=== PATIENT | female | born 1985 ===

== ENCOUNTER 2017-01-11 19:08 | Emergency (ER) | payer MEDICAID, OTHER ==
[2017-01-11 19:09] VITALS: BMI 36.6
[2017-01-11 19:17] VITALS: BP 137/79; PULSE 85; RESP 16; TEMP 98.2; O2SAT 99
--- NOTE | 2017-01-11 19:26 | ED PDOC ---
HPI: Female Pain Time Seen by Provider: 01/11/17 19:18 Chief Complaint (Nursing): Female Genitourinary History Per: Patient (Vaginal bleeding assoc with lower abd cramping. Seen by PMD 01/05 with repeat Beta HCG 01/09 [place] [id number] [place] [id number]) Onset/Duration Of Symptoms: Days (5) Current Symptoms Are (Timing): Still Present Severity: Mild Pain Scale Rating Of: 2 Quality Of Discomfort: Cramping Abnormal Vaginal Bleeding: Yes Past Medical History Vital Signs: Last Vital Signs Temp 98.2 F 01/11/17 19:12 Pulse 85 01/11/17 19:12 Resp 16 01/11/17 19:12 BP 137/79 01/11/17 19:12 Pulse Ox 99 01/11/17 19:12 - Medical History PMH: Hypothyroidism Denies: Chronic Kidney Disease - Family History Family History: States: Unknown Family Hx - Home Medications Home Medications: Ambulatory Orders Medication Instructions Recorded Levothyroxine [Synthroid] 0.05 mg PO DAILY 03/12/14 Ethinyl Estradiol/Norgestima 1 tab PO DAILY 03/13/14 [Ortho Tri-Cyclen 35 Mcg-0.215 mg] Pantoprazole Sodium [Protonix] 40 mg PO PRN PRN 03/13/14 - Allergies Allergies/Adverse Reactions: Allergies Allergy/AdvReac Type Severity Reaction Status Date / Time No Known Allergies Allergy Verified 01/11/17 19:12 Review of Systems Gastrointestinal: Positive for: Abdominal Pain Genitourinary Female: Positive for: Vaginal Bleeding Musculoskeletal: Negative for: Back Pain Physical Exam - Physical Exam Appears: Positive for: Non-toxic, No Acute Distress Gastrointestinal/Abdominal: Positive for: Soft. Negative for: Tenderness Pelvic Exam: Positive for: External Exam Normal, Blood (blood with clots in vault). Negative for: Mass, Tender Adnexa - Laboratory Results Result Diagrams: 01/11/17 19:45 - ECG O2 Sat by Pulse Oximetry: 99 Disposition - Clinical Impression Clinical Impression: Threatened - Patient ED Disposition Is Patient to be Admitted: No Counseled Patient/Family Regarding: Studies Performed, Diagnosis, Need For Followup - Disposition Referrals: Federico Murray MD [Staff Provider] - Disposition: Routine/Home Disposition Time: 21:28 Condition: FAIR Instructions: Threatened Miscarriage (ED)
[2017-01-11 19:50] LABS: BASO # 0.1 K/uL (0.0-0.2); BASO % 0.9 % (0.0-2.0); EOS # 0.1 K/uL (0.0-0.7); EOS % 1.1 % (0.0-4.0); HEMOGLOBIN 13.1 g/dL (12.0-16.0); LYMPH # 1.6 K/uL (1.0-4.3); LYMPH % 16.6 % (20.0-40.0); MEAN CELL VOLUME 87.1 fl (81.0-99.0); MEAN CORPUSCULAR HGB CONC 33.3 g/dL (33.0-37.0); MEAN PLATELET VOLUME 9.3 fl (7.2-11.7); MONO # 0.6 K/uL (0.0-0.8); MONO % 6.1 % (0.0-10.0); NEUT # 7.1 K/uL (1.8-7.0); NEUT % 75.3 % (50.0-75.0); RBC 4.52 Mil/uL (3.80-5.20); RED CELL DISTRIBUTION WIDTH 13.5 % (11.5-14.5); WHITE BLOOD COUNT 9.5 K/uL (4.8-10.8)
== END 2017-01-11 21:47 | disposition home or self-care (01) ==
LOC: H.ER 19:08
DX: O20.0 Threatened abortion (principal); E03.9 Hypothyroidism, unspecified

== ENCOUNTER 2017-01-12 19:35 | Observation (INO) | payer OTHER ==
[2017-01-12 19:35] VITALS: BMI 36.6
[2017-01-12] MEDS ORDERED: Sodium Chloride 0.9% 1,000 ML IV STA (20:14)
--- NOTE | 2017-01-12 20:32 | ED PDOC ---
HPI: Female Pain Time Seen by Provider: 01/12/17 20:04 Chief Complaint (Nursing): Female Genitourinary Chief Complaint (Provider): : heavy vaginal bleeding History Per: Patient History/Exam Limitations: no limitations Onset/Duration Of Symptoms: Days (3) Current Symptoms Are (Timing): Still Present Quality Of Discomfort: Cramping Additional History Per: Patient Additional Complaint(s): 31 y/o female, approx 9 weeks gestation, presents for eval ofvaginal bleeding x 3 days, worse today. Patient was seen in ED yesterday for same, but presents tonight due to heavy bleeding with clots that began 2 hours prior to arrival. Denies fever, nausea/vomiting, chest pain, shortness of breath, palpitations, dysuria, hematuria. Abnormal Vaginal Bleeding: Yes Last Menstral Period: 11/06/16 : 1 Para: 0 Miscarriage: 0 Past Medical History Reviewed: Historical Data, Nursing Documentation, Vital Signs Vital Signs: Last Vital Signs Temp 98.3 F 01/12/17 19:53 Pulse 114 H 01/12/17 19:53 Resp 16 01/12/17 19:53 BP Pulse Ox 98 01/12/17 19:53 - Medical History PMH: Hypothyroidism Denies: Chronic Kidney Disease - Surgical History Surgical History: Cholecystectomy - Family History Family History: States: Unknown Family Hx - Home Medications Home Medications: Ambulatory Orders Medication Instructions Recorded No Known Home Med 01/12/17 - Allergies Allergies/Adverse Reactions: Allergies Allergy/AdvReac Type Severity Reaction Status Date / Time No Known Allergies Allergy Verified 01/12/17 23:13 Review of Systems ROS Statement: Except As Marked, All Systems Reviewed And Found Negative Genitourinary Female: Positive for: Vaginal Bleeding, Pelvic Pain Physical Exam - Reviewed Nursing Documentation Reviewed: Yes Vital Signs Reviewed: Yes - Physical Exam Appears: Positive for: Well, Non-toxic, No Acute Distress Head Exam: Positive for: ATRAUMATIC, NORMAL INSPECTION, NORMOCEPHALIC Skin: Positive for: Normal Color Eye Exam: Positive for: Normal appearance ENT: Positive for: Normal ENT Inspection Cardiovascular/Chest: Positive for: Regular Rate, Rhythm Respiratory: Positive for: Normal Breath Sounds Gastrointestinal/Abdominal: Positive for: Bowel Sounds, Soft, Tenderness ( diffuse lower discomfort) Pelvic Exam: Positive for: External Exam Normal, Active Bleeding (visualization of cervix limited due to large amount of bleeding with clots), Other (exam chaperoned by Kathia HOLLEY) Back: Positive for: Normal Inspection Extremity: Positive for: Normal ROM Neurologic/Psych: Positive for: Alert, Oriented - Laboratory Results Result Diagrams: 01/12/17 21:16 01/12/17 21:16 - ECG O2 Sat by Pulse Oximetry: 98 - Progress ED Course And Treament: labs, urine, OB u/s EXAM: US Uterus CLINICAL HISTORY: 31 years old, female; Signs and symptoms; Lmp or gestational age (in weeks): 09/23; Antepartum complications; Hemorrhage; Additional info: , vaginal bleeding TECHNIQUE: Real-time ultrasound of the maternal uterus (limited) with image documentation. COMPARISON: No relevant prior studies available. FINDINGS: Uterus: No intrauterine gestational sac is seen. No mass is identified. Thickened endometrium, measured at 1.5 cm. Adnexa: Doppler evaluation reveals vascular flow in both ovaries. 1.9 cm right ovarian cyst. Free fluid: None. IMPRESSION: No intrauterine is identified. Thickened endometrium. Right ovarian cyst. Differential diagnosis includes spontaneous , very early intrauterine , and ectopic . Correlate clinically. Case discussed with jay jay [employer]; will place in observation med/surg for possible D&C in am. Recommends sending products for cytology and doing repeat 4 hour CBC. Disposition - Clinical Impression Clinical Impression: Spontaneous miscarriage - Disposition Disposition Time: 23:03 Condition: FAIR - Pt Status Changed To: Hospital Disposition Of: Observation
[2017-01-12 21:31] LABS: BASO % 0.3 % (0.0-2.0); EOS # 0.1 K/uL (0.0-0.7); EOS % 0.6 % (0.0-4.0); HEMATOCRIT 38.4 % (34.0-47.0); LYMPH # 1.4 K/uL (1.0-4.3); LYMPH % 10.3 % (20.0-40.0); MEAN CELL VOLUME 87.1 fl (81.0-99.0); MEAN CORPUSCULAR HGB CONC 33.2 g/dL (33.0-37.0); MEAN PLATELET VOLUME 9.5 fl (7.2-11.7); MONO # 0.7 K/uL (0.0-0.8); MONO % 4.9 % (0.0-10.0); NEUT # 11.7 K/uL (1.8-7.0); NEUT % 83.9 % (50.0-75.0); NRBC % 0.1 % (0.0-0.0); RED CELL DISTRIBUTION WIDTH 13.1 % (11.5-14.5); WHITE BLOOD COUNT 13.9 K/uL (4.8-10.8)
--- NOTE | 2017-01-12 21:53 | US ---
EXAM: US Uterus CLINICAL HISTORY: 31 years old, female; Signs and symptoms; Lmp or gestational age (in weeks): 11/06/16; Antepartum complications; Hemorrhage; Additional info: , vaginal bleeding TECHNIQUE: Real-time ultrasound of the maternal uterus (limited) with image documentation. COMPARISON: No relevant prior studies available. FINDINGS: Uterus: No intrauterine gestational sac is seen. No mass is identified. Thickened endometrium, measured at 1.5 cm. Adnexa: Doppler evaluation reveals vascular flow in both ovaries. 1.9 cm right ovarian cyst. Free fluid: None. IMPRESSION: No intrauterine is identified. Thickened endometrium. Right ovarian cyst. Differential diagnosis includes spontaneous , very early intrauterine , and ectopic . Correlate clinically.
[2017-01-12 22:01] LABS: ALB/GLOB RATIO 1.2 (1.0-2.1); ALKALINE PHOSPHATASE 60 U/L (38-126); ALT/SGPT 37 U/L (9-52); AST/SGOT 40 U/L (14-36); BILIRUBIN,TOTAL 0.4 mg/dl (0.2-1.3); BLOOD UREA NITROGEN 11 mg/dl (7-17); CALCIUM 9.4 mg/dL (8.4-10.2); CARBON DIOXIDE 23 mmol/L (22-30); CHLORIDE 104 mmol/L (98-107); GFR AFRICAN-AMERICAN > 60; GLUCOSE,RANDOM 104 mg/dL (65-105); SODIUM 138 mmol/l (132-148)
[2017-01-12 22:15] LABS: POTASSIUM 4.3 MMOL/L (3.6-5.0)
[2017-01-13] MEDS ORDERED: Lactated Ringer's 1,000 ML IV SCH (01:00)
[2017-01-13 01:36] LABS: HEMATOCRIT 32.5 % (34.0-47.0); MEAN CELL VOLUME 86.2 fl (81.0-99.0); MEAN CORPUSCULAR HEMOGLOBIN 28.9 pg (27.0-31.0); MEAN CORPUSCULAR HGB CONC 33.5 g/dL (33.0-37.0); WHITE BLOOD COUNT 13.1 K/uL (4.8-10.8)
[2017-01-13] MEDS ORDERED: Chlorhexidine Gluconate 2OZ GEL TP ONE (10:22)
[2017-01-13] MEDS ORDERED: Propofol 10 mg/ml Inj (20 ML) ONE (10:47)
[2017-01-13] MEDS ORDERED: Midazolam 2 MG/2 ML VIAL ONE (10:47)
[2017-01-13] MEDS ORDERED: Oxytocin 10 Units/ml Inj IM ONE (11:36)
[2017-01-13] MEDS ORDERED: Lactated Ringer's 1,000 ML IV ONE (11:37)
[2017-01-13 13:27] VITALS: O2SAT 99
[2017-01-13 15:52] VITALS: BP 104/71; PULSE 74; RESP 18; TEMP 97.9
--- NOTE | 2017-01-14 15:51 | OP ---
PROCEDURE DATE: 01/13/2017 PREOPERATIVE DIAGNOSES: Incomplete . POSTOPERATIVE DIAGNOSIS: Incomplete . SURGEON: Federico Murray MD ANESTHESIA: Dr. Suggs, general anesthesia. PROCEDURE: Dilatation and curettage. DESCRIPTION OF PROCEDURE: First the straight catheter was used to empty the bladder. After this was done, the anterior lip of the cervix was grasped with single tooth tenaculum and about 2 cm dilated. Curettage was done and large amount of tissue was obtained. Hemostasis was then maintained. After this was done, the tissue was sent to pathology and some for chromosome analysis. ESTIMATED BLOOD LOSS: Minimal was about 75 mL. The patient tolerated procedure well and was in satisfactory condition on the way to recovery room. Federico Murray MD cc: 22 TT: 01/14/2017 15:49:47 jn
== END 2017-01-13 16:07 | disposition home or self-care (01) ==
LOC: H.ER 19:35 → H.ERHOLD 23:06 → H.MEDSURG1 01-13 00:13
PROVIDERS: ADMIT Specialist; ATTEND Specialist
DX: O03.4 Incomplete spontaneous abortion without complication (principal); E03.9 Hypothyroidism, unspecified; N83.201 Unspecified ovarian cyst, right side